=== PATIENT | male | born 1955 | race African-American/Black ===

== ENCOUNTER 2019-12-02 12:07 | Emergency (ER) | payer OTHER ==
[2019-12-02] MEDS ORDERED: Ondansetron PF 4 MG/2 ML Vial ONE (12:36)
[2019-12-02] MEDS ORDERED: Ketorolac Tromethamine 30 MG/ML VIAL ONE (12:36)
[2019-12-02 12:44] LABS: #Basophils 0.1 thou/uL (0.0-0.2); #Lymphocytes 1.1 thou/uL (1.20-3.40); #Monocytes 0.6 thou/uL (0.11-0.59); #Neutrophils 7.9 thou/uL (1.40-6.50); %Basophils 1.2 % (0.0-1.0); %Lymphocytes 11.4 % (21.0-51.0); %Monocytes 6.3 % (0.0-10.0); %Neutrophils 81.1 % (42.0-75.0); Hemoglobin 14.4 g/dL (14.0-18.0); Mean Corpuscular Hemoglobin 29.7 pg (27.0-31.0); Mean Corpuscular Volume 92.6 fL (78.0-98.0); Mean Platelet Volume 9.3 fL (7.4-10.4); Platelet Count 242 thou/uL (130-400); RBC Distribution Width 11.4 % (11.5-14.5); Red Blood Cell (RBC) Count 4.85 mill/uL (4.70-6.10); White Blood Cell (WBC) Count 9.8 thou/uL (4.8-10.8)
[2019-12-02 12:58] LABS: ALT (SGPT) 20 U/L (8-55); AST (SGOT) 16 U/L (5-34); Albumin 4.4 g/dL (3.4-4.8); Alkaline Phosphatase 75 U/L (40-110); Anion Gap 15 mmol/L (10-20); BUN (Urea Nitrogen) 10 mg/dL (8.4-25.7); Bilirubin, Total 0.6 mg/dL (0.2-1.2); Calc. Creatinine Clearance 0 mL/min (70-130); Calcium 9.1 mg/dL (7.8-10.44); Carbon Dioxide 26 mmol/L (23-31); Chloride 106 mmol/L (98-107); Estimated GFR-MDRD 89; Globulin 3.4 g/dL (2.4-3.5); Glucose 114 mg/dL (80-115); Lipase 23 U/L (8-78); Potassium 3.8 mmol/L (3.5-5.1); Protein, Total 7.8 g/dL (5.8-8.1); Sodium 143 mmol/L (136-145)
[2019-12-02 13:10] LABS: Bilirubin Negative (Negative); Blood, Urine Trace (Negative); Glucose, Urine (Dipstick) Negative (Negative); Leukocyte Negative (Negative); Nitrite Negative (Negative); Protein, Urine (Dipstick) 30 mg/dL (Neg-Trace); Urobilinogen 0.2 mg/dL (Less than 2)
[2019-12-02 13:13] LABS: Clarity Hazy (Clear)
[2019-12-02 13:15] LABS: Bacteria/HPF Rare-Few HPF (None Seen); RBC/HPF 0-3 HPF (0-3); Squamous Epithelial 0-3 HPF (0-3); WBC/HPF 0-3 HPF (0-3)
--- NOTE | 2019-12-02 13:39 | CT ---
EXAM: CT Abdomen Pelvis W Con PROVIDED CLINICAL HISTORY: Right lower quadrant pain COMPARISON: None FINDINGS: The visualized lung bases are free of significant opacity. Numerous bilateral renal hypodensities are noted, the larger of which are compatible with cysts and t he smaller of which are too small to definitively characterize but also likely reflects cysts. Similarly, there are several subcentimeter hypodensities involving the liver too small to characteriz e but also likely cysts. The spleen, pancreas and adrenal glands appear unremarkable. There is a 2 mm distal right ureteral calculus with mild right hydroureter. Minimal right hydronephro sis. No additional urinary tract calculi apparent. No bowel dilatation, inflammatory fat stranding, free fluid or free air apparent. The appendix appear s normal. The osseous structures demonstrate no concerning lytic or blastic lesions. IMPRESSION: 1. 2 mm minimally obstructing distal right ureteral calculus. 2. Bilateral renal as well as hepatic hypodensities most compatible with cysts. 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
== END 2019-12-02 14:15 | disposition home or self-care (01) ==
LOC: MADERS 12:07
DX: N13.2 Hydronephrosis with renal and ureteral calculous obstruction (principal); F17.220 Nicotine dependence, chewing tobacco, uncomplicated
CPT/HCPCS: 74177; 80053; 81003; 81015; 83605; 83690; 85025; 93005; 96374; 96375; J1885; J2405

== ENCOUNTER 2021-01-25 17:07 | Emergency (ER) | payer OTHER | END 2021-01-25 18:21 | disposition home or self-care (01) | LOC: MADERS 17:07 | DX: R42 Dizziness and giddiness (principal); R29.700 NIHSS score 0; F17.290 Nicotine dependence, other tobacco product, uncomplicated | CPT/HCPCS: 99283 ==